=== PATIENT | male | born 1980 | race Caucasian/White ===

== ENCOUNTER 2016-09-01 07:44 | Inpatient (IN) | payer SELFPAY ==
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
--- NOTE | ~2016-09-01 | IDS ---
Interim Discharge Summary [facility] [address] [place]. [address] NAME: KATY MIRANDA : 82 STATUS : ADM IN PAT#: [id number] AGE: 36 ADM/REG DATE : 09/01/16 MR#: [id number] REPORT SERV DATE: 09/04/16 DICTATED BY: CORKY CRENSHAW IV DATE: 09/04/16 REPORT STATUS : Draft TRANSCRIBED BY: MODRoge DATE: 09/04/16 ADMISSION DATE: 09/01/2016 DISCHARGE DATE: Date of the transfer to the ICU is 09/03/2016. Date of transfer to the floor is 09/04/2016. ADMITTING DIAGNOSES: 1. Acute alcohol withdrawal with delirium and agitation, resolved. 2. Chest pain with catheterization demonstrating no coronary artery disease with an ejection fraction now improved at 50%. 3. Nonischemic cardiomyopathy. 4. Hypertension. 5. Elevated cholesterol. 6. Tobacco dependency. CONSULTANTS: Cardiology, continued to follow the patient during the hospitalization. PROCEDURES: The only new procedure on the Critical Care Service was a cardiac catheterization, which was performed today and demonstrated normal coronaries with an ejection fraction of 50%. MEDICATIONS: At time of transfer include aspirin 81 mg daily, BuSpar 15 mg twice a day, Carafate 1 g before meals, and at bedtime, folic acid 1 mg daily, Habitrol patch 21 mg daily, thiamine 200 mg IV daily, Lipitor 80 mg daily, Coreg 3.125 mg twice a day, Lovenox 40 mg subcu daily, Neurontin 800 mg three times a day, and Protonix 40 mg daily. HOSPITAL COURSE: The patient was transferred to an Photoengraving Finisher Service on spiral spring winder of 09/03/2016 when he developed increasing agitation with evidence for alcohol withdrawal. The patient was given serial boluses of Ativan and Precedex drip. Finally, the patient fell asleep. By the end of the day on 09/03/2016 he was somnolent, though much more appropriate and no longer hallucinating nor was he agitated. The patient was scheduled for cardiac catheterization on the day of 09/03/2016; however, that was held because of the instability. That was performed on the day of 09/04/2016 demonstrated a nonischemic cardiomyopathy with ejection fraction of 50%, which is improved from the 35% echo and 48% nuclear study with normal coronaries. The patient had adjustments of his medications with change of Lopressor to Coreg. He remained on Habitrol patch. He continued to receive thiamine, multivitamins, and folic acid. His Ativan dose was decreased to give oral dose consistently and then IV dose as needed for worsening symptoms. He was saturating adequately on room air. It was felt that he was stable for transfer back to the floor. We will ask Hospitalist Service to resume primary care. NM/SHLOMOL Interim Discharge Summary [address] [address] NAME: KATY MIRANDA : 82 STATUS : ADM IN PAT#: [id number] AGE: 36 ADM/REG DATE : 09/01/16 MR#: [id number] REPORT SERV DATE: 09/04/16 DICTATED BY: CORKY CRENSHAW IV DATE: 09/04/16 REPORT STATUS : Draft TRANSCRIBED BY: LALO DATE: 09/04/16 Corky Crenshaw IV, M.D. / [id number] CC: Cliff Parisi M.D.
--- NOTE | ~2016-09-01 | CN ---
Consultation Report [facility] [address] [place]. [address] NAME: KATY MIRANDA : 82 STATUS : ADM IN PAT#: [id number] AGE: 36 ADM/REG DATE : 09/01/16 MR#: [id number] REPORT SERV DATE: 09/02/16 DICTATED BY: CRISTO GUTIERREZ DATE: 09/02/16 REPORT STATUS : Draft TRANSCRIBED BY: LALO DATE: 09/02/16 CARDIOLOGY CONSULT DATE OF CONSULTATION: REASON FOR CONSULTATION: Katy Miranda is a 36-year-old male, who is seen for abnormal stress test. HISTORY OF PRESENT ILLNESS: This 36-year-old male has a history of alcohol abuse who awoke yesterday with chest pain and abdominal discomfort. This is about a 10/10, pressure-like sensation in his chest radiating to his back. He came to the emergency room, was felt to have gastroenteritis and was given morphine and Ativan. Today, followup stress test showed anteroseptal ischemia with an ejection fraction of 35%. REVIEW OF SYSTEMS: Difficult to obtain, but there do not appear to be previous symptoms of heart failure, chest pain, palpitations, syncope, or presyncope. PAST MEDICAL HISTORY: Significant for: 1. Hypertension. 2. Hyperlipidemia. Currently on atorvastatin 40. 3. Tobacco use. 4. Posttraumatic syndrome. He has actually been out of all medications for approximately one month. SOCIAL HISTORY: He smokes one to three packs per day since the age of 9. He drinks 24 cans of beer a day and hard liquor. He is homeless. He does not use illicit drugs. FAMILY HISTORY: Father of [place] at the age of 40. Mother is alive at age 55. PHYSICAL EXAMINATION: VITAL SIGNS: Blood pressure is 136/75, pulse is 81. He is currently mildly febrile. GENERAL: Resting comfortably, nutritional status appears adequate. EYES: PERRLA. LUNGS: No labored use of accessory muscles. Without rales or wheezes. COR: PMI is not displaced. No thrills or heaves. NL S1 and S2. No S3, murmur, click or rub. PULSES: Carotids without bruits. ABD: +BS, nontender. EXT: No cyanosis, clubbing, or edema. SKIN: No petechiae. NEURO: Alert and oriented. Does not appear anxious or depressed. LABORATORY EVALUATION: Troponin is negative. Stress test, high risk with decreased ejection Consultation Report [facility] [address] [place]. [address] NAME: KATY MIRANDA : 82 STATUS : ADM IN PAT#: [id number] AGE: 36 ADM/REG DATE : 09/01/16 MR#: [id number] REPORT SERV DATE: 09/02/16 DICTATED BY: CRISTO GUTIERREZ DATE: 09/02/16 REPORT STATUS : Draft TRANSCRIBED BY: MODL DATE: 09/02/16 fraction and large ischemic area. White count is normal. Hematocrit is intact at 40.15. ASSESSMENT: At this time, we will obtain cardiac catheterization to evaluate coronary artery disease. We will also begin intensive medical treatment to include aspirin, beta-franc. MAI/LALO Cristo Gutierrez M.D. / [id number] CC: Cliff Parisi M.D.
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
[2016-09-01 09:19] LABS: BASOPHILS 0.3 %; BASOPHILS ABSOLUTE 0.02 10/3/uL (0.0-0.16); EOSINOPHILS 1.1 %; EOSINOPHILS ABSOLUTE 0.08 10/3/uL (0.0-0.53); ER CBC TAT 0 Hrs 07 Mins; HEMATOCRIT 45.8 % (40.0-51.0); HEMOGLOBIN 15.7 g/dL (13.6-17.8); IMMATURE GRANULOCYTES 0.3 %; IMMATURE GRANULOCYTES ABSOLUTE 0.02 10/3/uL (0.0-0.11); LYMPHOCYTES 25.7 %; LYMPHOCYTES ABSOLUTE 1.79 10/3/uL (0.67-4.30); MEAN CORPUS HGB CONC 34.3 g/dL (32.0-36.0); MEAN CORPUSCULAR HEMOGLOB 32.3 pg (26.0-34.0); MEAN CORPUSCULAR VOLUME 94.2 fL (80-100); MONOCYTES 10.1 %; NEUTROPHILS 62.5 %; NEUTROPHILS ABSOLUTE 4.35 10/3/uL (2.02-8.40); PLATELET COUNT 234 10/3/uL (150-400); RBC DISTRIBUTION WIDTH 13.5 % (12.0-16.0); RED CELL COUNT 4.86 10/6/uL (4.7-6.1)
[2016-09-01 09:20] LABS: MANUAL DIFF NO %
[2016-09-01 09:26] LABS: PARTIAL THROMBO TIME 29.3 SEC (22.5-37.2); PROTIME (NOT ORD) 13.3 SEC (12.0-14.5)
[2016-09-01 09:33] LABS: ALCOHOL 105 MG/DL (0); SALICYLATE 2.5 MG/DL (-)
[2016-09-01 09:35] LABS: ACETAMINOPHEN LEVEL (TYLENOL) < 2.0 MCG/ML (10.0-20.0)
[2016-09-01 10:05] LABS: AMPHETAMINES (NOT ORD) NEG (NEG); BARBITURATES (NOT ORDERED NEG (NEG); BENZODIAZEPINES (NOT ORD) NEG (NEG); CANNABINOIDS (THC) NEG (NEG); COCAINE (NOT ORDERED) NEG (NEG); OPIATES NEG (NEG); PHENCYCLIDINE(PCP) NEG (NEG); TRICYCLICS NEG (NEG)
[2016-09-01 10:36] LABS: ALBUMIN 3.3 G/DL (3.5-5.0); ALKALINE PHOSPHATASE 96 U/L (45-117); BUN (BLOOD UREA NITROGEN) 6 MG/DL (6-23); CALCIUM, SERUM 8.1 MG/DL (8.5-10.4); CHLORIDE, SERUM 105 MMOL/L (96-112); CO2 (CARBON DIOXIDE) 22 MMOL/L (24-34); CREATININE 0.76 MG/DL (0.70-1.30); GFR AFRICAN AMERICAN 137 ML/MIN (>=60); GFR NON AFRICAN AMERICAN 118 ML/MIN (>=60); GLUCOSE, SERUM 78 MG/DL (60-99); SGOT(AST) 102 U/L (5-40); SGPT(ALT) 74 U/L (5-65); SODIUM, SERUM 143 MMOL/L (135-148); TOTAL BILIRUBIN 0.3 MG/DL (0-1.2); TOTAL PROTEIN 7.6 G/DL (6.0-8.5)
[2016-09-01 10:41] LABS: CHEST PAIN PROFILE TAT 0 Hrs 25 Mins; DIRECT BILIRUBIN 0.1 MG/DL (0.0-0.4); INDIRECT BILIRUBIN(NOT ORDER) 0.2 MG/DL (0.1-0.9); TROPONIN I <0.02 NG/ML (<0.05)
[2016-09-01] MEDS ORDERED: LOP50 PO (12:52)
[2016-09-01] MEDS ORDERED: ZOCOR20 PO (12:53)
[2016-09-01] MEDS ORDERED: NEUR800 PO (12:53)
[2016-09-01] MEDS ORDERED: BUSPAR15 M1 PO (12:54)
[2016-09-01] MEDS ORDERED: PROAIR HFA INH (12:55)
[2016-09-01] MEDS ORDERED: ATARAX50B PO (12:55)
[2016-09-02 02:13] LABS: ASCORBIC ACID (UR NOT ORDER) NEG (NEG); BILIRUBIN, URINE NEGATIVE (NEG); KETONE, URINE 20 MG/DL (NEG); LEUKOCYTE ESTERASE(NOT OR NEG (NEG); WBC (NOT ORDERED) (RFLEX) < 1 (0-5)
[2016-09-02 04:23] LABS: BASOPHILS 0.3 %; BASOPHILS ABSOLUTE 0.02 10/3/uL (0.0-0.16); EOSINOPHILS 2.2 %; EOSINOPHILS ABSOLUTE 0.14 10/3/uL (0.0-0.53); HEMATOCRIT 42.7 % (40.0-51.0); HEMOGLOBIN 14.6 g/dL (13.6-17.8); IMMATURE GRANULOCYTES 0.5 %; IMMATURE GRANULOCYTES ABSOLUTE 0.03 10/3/uL (0.0-0.11); LYMPHOCYTES 34.4 %; LYMPHOCYTES ABSOLUTE 2.16 10/3/uL (0.67-4.30); MEAN CORPUS HGB CONC 34.2 g/dL (32.0-36.0); MEAN CORPUSCULAR HEMOGLOB 32.4 pg (26.0-34.0); MEAN CORPUSCULAR VOLUME 94.9 fL (80-100); MEAN PLATELET VOLUME 9.2 fL (9.2-13.0); MONOCYTES 10.8 %; MONOCYTES ABSOLUTE 0.68 10/3/uL (0.21-1.20); NEUTROPHILS 51.8 %; NEUTROPHILS ABSOLUTE 3.24 10/3/uL (2.02-8.40); PLATELET COUNT 186 10/3/uL (150-400); RBC DISTRIBUTION WIDTH 13.5 % (12.0-16.0); WHITE BLOOD CELLS 6.3 10/3/uL (4.5-10.5)
[2016-09-02 04:26] LABS: MANUAL DIFF NO %
[2016-09-02 04:48] LABS: A/G RATIO 0.8 (0.7-1.9); ALBUMIN 2.9 G/DL (3.5-5.0); ALKALINE PHOSPHATASE 86 U/L (45-117); BUN (BLOOD UREA NITROGEN) 9 MG/DL (6-23); CALCIUM, SERUM 8.3 MG/DL (8.5-10.4); CHLORIDE, SERUM 105 MMOL/L (96-112); CREATININE 0.82 MG/DL (0.70-1.30); GFR AFRICAN AMERICAN 133 ML/MIN (>=60); GFR NON AFRICAN AMERICAN 115 ML/MIN (>=60); GLOBULIN 3.8 G/DL (2.5-4.1); GLUCOSE, SERUM 86 MG/DL (60-99); SGOT(AST) 57 U/L (5-40); SGPT(ALT) 55 U/L (5-65); SODIUM, SERUM 140 MMOL/L (135-148); TOTAL BILIRUBIN 0.6 MG/DL (0-1.2); TOTAL PROTEIN 6.7 G/DL (6.0-8.5); TROPONIN I <0.02 NG/ML (<0.05)
[2016-09-02 04:50] LABS: CO2 (CARBON DIOXIDE) 27 MMOL/L (24-34)
[2016-09-03 09:05] LABS: BASOPHILS 0.3 %; BASOPHILS ABSOLUTE 0.02 10/3/uL (0.0-0.16); EOSINOPHILS 3.7 %; EOSINOPHILS ABSOLUTE 0.28 10/3/uL (0.0-0.53); HEMATOCRIT 42.4 % (40.0-51.0); HEMOGLOBIN 14.6 g/dL (13.6-17.8); IMMATURE GRANULOCYTES 0.5 %; IMMATURE GRANULOCYTES ABSOLUTE 0.04 10/3/uL (0.0-0.11); LYMPHOCYTES 23.6 %; LYMPHOCYTES ABSOLUTE 1.77 10/3/uL (0.67-4.30); MEAN CORPUS HGB CONC 34.4 g/dL (32.0-36.0); MEAN CORPUSCULAR HEMOGLOB 32.5 pg (26.0-34.0); MEAN CORPUSCULAR VOLUME 94.4 fL (80-100); MEAN PLATELET VOLUME 10.1 fL (9.2-13.0); MONOCYTES ABSOLUTE 0.75 10/3/uL (0.21-1.20); NEUTROPHILS 61.9 %; NEUTROPHILS ABSOLUTE 4.64 10/3/uL (2.02-8.40); PLATELET COUNT 199 10/3/uL (150-400); RBC DISTRIBUTION WIDTH 13.5 % (12.0-16.0); RED CELL COUNT 4.49 10/6/uL (4.7-6.1); WHITE BLOOD CELLS 7.5 10/3/uL (4.5-10.5)
[2016-09-03 09:09] LABS: MANUAL DIFF NO %
[2016-09-03 09:21] LABS: BUN (BLOOD UREA NITROGEN) 6 MG/DL (6-23); CALCIUM, SERUM 8.8 MG/DL (8.5-10.4); CHLORIDE, SERUM 107 MMOL/L (96-112); CHOL/HDL RATIO(NOT ORDER) 2.5 (0-5); CHOLESTEROL 165 MG/DL (< 200); CO2 (CARBON DIOXIDE) 25 MMOL/L (24-34); CREATININE 0.86 MG/DL (0.70-1.30); GFR AFRICAN AMERICAN 130 ML/MIN (>=60); GFR NON AFRICAN AMERICAN 112 ML/MIN (>=60); GLUCOSE, SERUM 92 MG/DL (60-99); HDL CHOLESTEROL 66 MG/DL (> 39); LDL CHOLESTEROL 78 MG/DL (< 130); NON-HDL CHOLESTEROL 99 MG/DL (< 160); POTASSIUM, SERUM 3.8 MMOL/L (3.5-5.3); SODIUM, SERUM 141 MMOL/L (135-148); TRIGLYCERIDE 105 MG/DL (< 150)
[2016-09-03 10:36] LABS: BASOPHILS 0.6 %; BASOPHILS ABSOLUTE 0.04 10/3/uL (0.0-0.16); EOSINOPHILS 3.5 %; EOSINOPHILS ABSOLUTE 0.22 10/3/uL (0.0-0.53); HEMATOCRIT 42.6 % (40.0-51.0); HEMOGLOBIN 14.2 g/dL (13.6-17.8); IMMATURE GRANULOCYTES 0.6 %; IMMATURE GRANULOCYTES ABSOLUTE 0.04 10/3/uL (0.0-0.11); LYMPHOCYTES 24.5 %; LYMPHOCYTES ABSOLUTE 1.53 10/3/uL (0.67-4.30); MEAN CORPUS HGB CONC 33.3 g/dL (32.0-36.0); MEAN CORPUSCULAR HEMOGLOB 32.2 pg (26.0-34.0); MEAN CORPUSCULAR VOLUME 96.6 fL (80-100); MEAN PLATELET VOLUME 9.9 fL (9.2-13.0); MONOCYTES 10.1 %; MONOCYTES ABSOLUTE 0.63 10/3/uL (0.21-1.20); NEUTROPHILS 60.7 %; NEUTROPHILS ABSOLUTE 3.79 10/3/uL (2.02-8.40); PLATELET COUNT 168 10/3/uL (150-400); RBC DISTRIBUTION WIDTH 13.5 % (12.0-16.0); RED CELL COUNT 4.41 10/6/uL (4.7-6.1); WHITE BLOOD CELLS 6.3 10/3/uL (4.5-10.5)
[2016-09-03 10:37] LABS: MANUAL DIFF NO %
[2016-09-03 11:13] LABS: ALBUMIN 3.2 G/DL (3.5-5.0); BUN (BLOOD UREA NITROGEN) 7 MG/DL (6-23); CALCIUM, SERUM 8.5 MG/DL (8.5-10.4); CHLORIDE, SERUM 112 MMOL/L (96-112); CO2 (CARBON DIOXIDE) 26 MMOL/L (24-34); CREATININE 0.83 MG/DL (0.70-1.30); FREE T4 0.84 NG/DL (0.76-1.46); GFR AFRICAN AMERICAN 132 ML/MIN (>=60); GFR NON AFRICAN AMERICAN 114 ML/MIN (>=60); GLUCOSE, SERUM 108 MG/DL (60-99); PHOSPHORUS, SERUM 3.8 MG/DL (2.5-4.5); SODIUM, SERUM 143 MMOL/L (135-148)
[2016-09-03 11:15] LABS: FOLATE 18.3 NG/ML (>5.2); POTASSIUM, SERUM 4.1 MMOL/L (3.5-5.3)
[2016-09-04 04:58] LABS: BASOPHILS 0.3 %; BASOPHILS ABSOLUTE 0.03 10/3/uL (0.0-0.16); EOSINOPHILS 2.7 %; EOSINOPHILS ABSOLUTE 0.26 10/3/uL (0.0-0.53); HEMATOCRIT 46.4 % (40.0-51.0); HEMOGLOBIN 15.5 g/dL (13.6-17.8); IMMATURE GRANULOCYTES 0.6 %; IMMATURE GRANULOCYTES ABSOLUTE 0.06 10/3/uL (0.0-0.11); LYMPHOCYTES 16.7 %; LYMPHOCYTES ABSOLUTE 1.61 10/3/uL (0.67-4.30); MEAN CORPUS HGB CONC 33.4 g/dL (32.0-36.0); MEAN CORPUSCULAR HEMOGLOB 32.4 pg (26.0-34.0); MEAN CORPUSCULAR VOLUME 97.1 fL (80-100); MEAN PLATELET VOLUME 10.1 fL (9.2-13.0); MONOCYTES 8.9 %; MONOCYTES ABSOLUTE 0.86 10/3/uL (0.21-1.20); NEUTROPHILS 70.8 %; NEUTROPHILS ABSOLUTE 6.81 10/3/uL (2.02-8.40); PLATELET COUNT 194 10/3/uL (150-400); RBC DISTRIBUTION WIDTH 12.8 % (12.0-16.0); RED CELL COUNT 4.78 10/6/uL (4.7-6.1)
[2016-09-04 04:59] LABS: MANUAL DIFF NO %; WHITE BLOOD CELLS 9.6 10/3/uL (4.5-10.5)
[2016-09-04 05:26] LABS: ALBUMIN 3.2 G/DL (3.5-5.0); BUN (BLOOD UREA NITROGEN) 9 MG/DL (6-23); CHLORIDE, SERUM 106 MMOL/L (96-112); CO2 (CARBON DIOXIDE) 24 MMOL/L (24-34); CREATININE 0.89 MG/DL (0.70-1.30); GFR AFRICAN AMERICAN 128 ML/MIN (>=60); GFR NON AFRICAN AMERICAN 111 ML/MIN (>=60); PHOSPHORUS, SERUM 4.7 MG/DL (2.5-4.5); POTASSIUM, SERUM 3.9 MMOL/L (3.5-5.3); SODIUM, SERUM 141 MMOL/L (135-148)
[2016-09-04 05:28] LABS: GLUCOSE, SERUM 76 MG/DL (60-99)
[2016-09-04 08:25] LABS: TROPONIN I <0.02 NG/ML (<0.05)
[2016-09-04 09:44] LABS: CHOL/HDL RATIO(NOT ORDER) 2.9 (0-5); CHOLESTEROL 165 MG/DL (< 200); HDL CHOLESTEROL 57 MG/DL (> 39); LDL CHOLESTEROL 85 MG/DL (< 130); NON-HDL CHOLESTEROL 108 MG/DL (< 160); TRIGLYCERIDE 119 MG/DL (< 150)
[2016-09-05 04:49] LABS: BASOPHILS 0.5 %; BASOPHILS ABSOLUTE 0.04 10/3/uL (0.0-0.16); EOSINOPHILS 4.2 %; EOSINOPHILS ABSOLUTE 0.33 10/3/uL (0.0-0.53); HEMATOCRIT 48.4 % (40.0-51.0); HEMOGLOBIN 16.1 g/dL (13.6-17.8); IMMATURE GRANULOCYTES 0.9 %; IMMATURE GRANULOCYTES ABSOLUTE 0.07 10/3/uL (0.0-0.11); LYMPHOCYTES 25.4 %; MEAN CORPUS HGB CONC 33.3 g/dL (32.0-36.0); MEAN CORPUSCULAR HEMOGLOB 32.1 pg (26.0-34.0); MEAN CORPUSCULAR VOLUME 96.6 fL (80-100); MONOCYTES 10.3 %; MONOCYTES ABSOLUTE 0.81 10/3/uL (0.21-1.20); NEUTROPHILS 58.7 %; NEUTROPHILS ABSOLUTE 4.62 10/3/uL (2.02-8.40); PLATELET COUNT 230 10/3/uL (150-400); RBC DISTRIBUTION WIDTH 12.9 % (12.0-16.0); RED CELL COUNT 5.01 10/6/uL (4.7-6.1); WHITE BLOOD CELLS 7.9 10/3/uL (4.5-10.5)
[2016-09-05 04:52] LABS: MANUAL DIFF NO %
[2016-09-05 05:05] LABS: A/G RATIO 0.7 (0.7-1.9); ALBUMIN 2.9 G/DL (3.5-5.0); ALKALINE PHOSPHATASE 105 U/L (45-117); BUN (BLOOD UREA NITROGEN) 9 MG/DL (6-23); CALCIUM, SERUM 8.6 MG/DL (8.5-10.4); CHLORIDE, SERUM 108 MMOL/L (96-112); CO2 (CARBON DIOXIDE) 26 MMOL/L (24-34); CREATININE 0.94 MG/DL (0.70-1.30); GFR AFRICAN AMERICAN 121 ML/MIN (>=60); GFR NON AFRICAN AMERICAN 105 ML/MIN (>=60); GLOBULIN 4.1 G/DL (2.5-4.1); GLUCOSE, SERUM 114 MG/DL (60-99); POTASSIUM, SERUM 3.5 MMOL/L (3.5-5.3); SGOT(AST) 34 U/L (5-40); SGPT(ALT) 40 U/L (5-65); SODIUM, SERUM 144 MMOL/L (135-148); TOTAL BILIRUBIN 0.3 MG/DL (0-1.2); TROPONIN I 0.08 NG/ML (<0.05)
[2016-09-05 06:03] LABS: PHOSPHORUS, SERUM 3.9 MG/DL (2.5-4.5)
[2016-09-06 06:32] LABS: BUN (BLOOD UREA NITROGEN) 11 MG/DL (6-23); CALCIUM, SERUM 8.7 MG/DL (8.5-10.4); CHLORIDE, SERUM 111 MMOL/L (96-112); CO2 (CARBON DIOXIDE) 24 MMOL/L (24-34); GFR AFRICAN AMERICAN 128 ML/MIN (>=60); GFR NON AFRICAN AMERICAN 110 ML/MIN (>=60); GLUCOSE, SERUM 104 MG/DL (60-99); POTASSIUM, SERUM 4.2 MMOL/L (3.5-5.3); SODIUM, SERUM 142 MMOL/L (135-148)
[2016-09-07 02:44] LABS: ASCORBIC ACID (UR NOT ORDER) NEG (NEG); BILIRUBIN, URINE NEGATIVE (NEG); KETONE, URINE NEGATIVE (NEG); LEUKOCYTE ESTERASE(NOT OR NEG (NEG); WBC (NOT ORDERED) (RFLEX) < 1 (0-5)
[2016-09-09 10:47] LABS: HEPATITIS C ANTIBODY NON-REACTIVE (NON-REACT)
[2016-09-09 10:48] LABS: HEPATITIS B CORE AB IGM NON-REACTIVE (NON-REAC)
[2016-09-09 10:50] LABS: HEP A ANTIBODY IGM NON-REACTIVE (NON-REACT)
[2016-09-09 10:51] LABS: HEPATITIS B SURFACE ANTIGEN NON-REACTIVE (NON-REACT)
[2016-09-09] MEDS ORDERED: HALF81 PO (13:46)
[2016-09-09] MEDS ORDERED: LIPITOR40 PO (13:47)
[2016-09-09] MEDS ORDERED: COREG6 PO (13:51)
[2016-09-09] MEDS ORDERED: CEFT5 PO (13:52)
[2016-09-09] MEDS ORDERED: LIBRIUM 5 MG CAP5 MG PO (14:01)
[2016-09-09] MEDS ORDERED: NEUR400 PO (14:03)
[2016-09-09] MEDS ORDERED: PRIN5 PO (14:05)
[2016-09-09] MEDS ORDERED: ENULOSE PO (14:05)
[2016-09-09] MEDS ORDERED: MELA3 PO (14:07)
[2016-09-09] MEDS ORDERED: HABIT21 TOP (14:08)
[2016-09-09] MEDS ORDERED: MVI PO (14:08)
[2016-09-09] MEDS ORDERED: ZOCOR40 PO (14:09)
[2016-09-09] MEDS ORDERED: ATV1 PO (14:11)
[2016-09-09] MEDS ORDERED: CELEXA20 PO (14:12)
== END 2016-09-09 17:47 | disposition home or self-care (01) | DRG 287 ==
LOC: ER 07:44 → CDU1 12:41 → CDU2 13:31 → 5NO 09-03 02:59 → CCU 09-03 07:44 → 6NO 09-05 15:01
PROVIDERS: Internal Medicine; Internal Medicine Critical Care Medicine; Nurse Practitioner
PROC: HZ2ZZZZ Detoxification Services for Substance Abuse Treatment (ICD-10-PCS; principal; 2016-09-01)
PROC: 4A023N7 Measurement of Cardiac Sampling and Pressure, Left Heart, Percutaneous Approach (ICD-10-PCS; 2016-09-04)
PROC: B2111ZZ Fluoroscopy of Multiple Coronary Arteries using Low Osmolar Contrast (ICD-10-PCS; 2016-09-04)
PROC: B2151ZZ Fluoroscopy of Left Heart using Low Osmolar Contrast (ICD-10-PCS; 2016-09-04)
DX: R07.9 Chest pain, unspecified (principal); F10.231 Alcohol dependence with withdrawal delirium; I42.6 Alcoholic cardiomyopathy; K70.0 Alcoholic fatty liver; I10 Essential (primary) hypertension; R10.9 Unspecified abdominal pain; F43.10 Post-traumatic stress disorder, unspecified; F17.210 Nicotine dependence, cigarettes, uncomplicated; E78.00 Pure hypercholesterolemia, unspecified; E78.5 Hyperlipidemia, unspecified; R00.0 Tachycardia, unspecified; Z59.0 Homelessness; Z88.0 Allergy status to penicillin; Z83.3 Family history of diabetes mellitus; Z82.49 Family history of ischemic heart disease and other diseases of the circulatory system; Z81.1 Family history of alcohol abuse and dependence; F41.1 Generalized anxiety disorder
CPT/HCPCS: 71010; 74176; 78452; 80048; 80053; 80061; 80069; 80074; 80076; 80305; 80307; 81001; 82140; 82607; 82746; 83690; 83735; 84100; 84145; 84439; 84443; 84484; 85025; 85610; 85730; 87040; 87641; 93005; 93017; 93458; 96374; 96375; 99152; 99153; 99285; A9270-GY; A9502; C1769; C1887; C1894; C8929; C9113; J0360; J2250; J2405; J3010; J3411; Q9957; Q9967